=== PATIENT | female | born 1935 | race Caucasian/White ===

== ENCOUNTER 2017-11-23 19:41 | Observation (INO) ==
--- NOTE | 2017-11-23 19:54 | Emergency Department Note ---
Disposition Clinical Impression: Confusion, TIA (transient ischemic attack) Altered mental status Qualifiers: Altered mental status type: unspecified Qualified Code(s): R41.82 - Altered mental status, unspecified Disposition: Admitted As Inpatient Condition: Good Referrals: NONE,PCP [Primary Care Provider] - Forms: ED Satisfaction Letter Time of Disposition: 23:16 General Adult HPI - General Chief complaint: ED Altered Mental Status Stated complaint: confussion Time Seen by Provider: 11/23/17 19:54 Source: patient Mode of arrival: wheelchair Limitations: no limitations Nursing Notes Reviewed: Yes Vital Signs Reviewed: Yes - History of Present Illness HPI Narrative: Patient is an 82-year-old female with past medical history of hypertension. She presents today due to new onset confusion. Family is present states that the patient was at home today approximately 3 hours ago. Family was at her house exchanging out a stove. They do state that there is a gas leak for small amount of time. No one else in the house is confused at this time. They state that she went to the bathroom, came out and was confused, was unsure if she was in her own home. They state that she is usually fully alert, oriented 3, performs activities of daily living by herself. They did not note any focal weakness, slurred speech, facial drooping. The patient herself is pleasantly confused, denies any chest pain, shortness of breath, nausea, vomiting, fevers, diarrhea, abdominal pain, dysuria, hematuria, falls. Granddaughter is present and states that she was home the entire time during this event and she did not hear or witness any falls, any other concerning of the events around this time of sudden onset confusion. Granddaughter does state that she took the patient's blood pressure during this event and it was elevated, diastolic was 118. The patient took her blood pressure medication and the recheck showed a diastolic in the 90s. They deny any other known history of CVA, previous cardiac disease or heart attack. - Related Data Allergies Allergy/AdvReac Type Severity Reaction Status Date / Time citalopram Allergy Itching Verified 11/23/17 21:16 isosorbide [From Imdur] AdvReac Numbness Verified 11/23/17 21:16 All systems ED: reviewed and negative except as stated. Constitutional: Denies: fever Cardiovascular: Denies: chest pain Respiratory: Denies: cough, dyspnea Gastrointestinal: Denies: abdominal pain, nausea, vomiting, diarrhea, constipation Genitourinary: Denies: urgency, dysuria, frequency, hematuria, discharge Neurological: Reports: confusion. Denies: headache, weakness, numbness, paresthesias, abnormal gait, vertigo Past Medical History - Past Medical History Attestation: Yes The following information was validated with the patient. Source: patient Medical history: Reports: no medical history Physical Exam - General Limitations: no limitations, altered mental status (Pleasantly confused) General appearance: alert - Head Head exam: atraumatic, normocephalic, normal inspection - Eye Eye exam: Present: normal appearance, PERRL, EOMI - ENT ENT exam: normal exam, normal oropharynx, mucous membranes moist - Neck Neck exam: Present: normal inspection, full ROM, trachea midline - Chest Chest inspection: Present: normal inspection, symmetric chest wall rise - Respiratory Respiratory exam: Present: normal lung sounds bilaterally - Cardiovascular Cardiovascular exam: Present: regular rate, normal rhythm, normal heart sounds - Abdominal Exam Abdominal exam: Present: soft, Non-Tender. Absent: tenderness, distention, guarding, rebound, rigidity - Extremities Exam Extremities exam: Present: normal inspection, full ROM. Absent: tenderness, pedal edema - Neurological Exam Neurological exam: Present: alert, CN II-XII intact, other (oriented x 2). Absent: motor sensory deficit - Expanded Neurological Exam Patient oriented to: Present: person, place. Absent: time Speech: Present: fluid speech Cranial nerves: EOM function (II, III, IV, ): Normal, facial sensation (V): Normal, facial palsy (VII): Normal, spinal accessory function (XI): Normal, tongue deviation (XII): Normal Cerebellar function: finger to nose: Normal Motor strength - LUE: 5/5 Motor strength - RUE: 5/5 Motor strength - LLE: 5/5 Motor strength - RLE: 5/5 Sensory exam upper extremity: light touch: Normal Sensory exam lower extremity: light touch: Normal Coma Scale Eye Opening: Spontaneous Coma Scale Motor Response: Obeys Commands Coma Scale Verbal Response: Confused Coma Scale Total: 14 - Psychiatric Psychiatric exam: Present: normal affect, normal mood - Skin Skin exam: Present: warm, dry, intact, normal color Course Course Narrative: NIH of 1 due to confusion, oriented x 2. This is changed from reported baseline. Otherwise, no other focal neuro deficit noted. Patient is outside the window of TPA. Proceed with head scan, basic blood work, chest x-ray, EKG, troponin, urinalysis to assess for any other etiology of confusion. This could be CVA in nature, patient will need to be admitted regardless for further CVA- type workup if everything is negative due to sudden onset nature of confusion. The confusion may also be related to elevated blood pressure prior to event. 23:13 chest x-ray negative for any acute cardio pulmonary process. Head CT was negative. Basic blood work shows no major abnormality. CO level mildly elevated at 7, she has smokers in house which could explain mild elevation. Urinalysis negative. This could have been related to elevated blood pressure, although there is no other secondary signs of end organ damage on other labs. Main concern is for possible TIA. Patient was reassessed after imaging and lab work, she is able to tell me person place and time much more quickly, is now oriented 3. Continues to have no focal neurologic deficits. Discussed admission for TIA workup. Patient family agreeable with this plan. Patient has been accepted by hospitalist at this time. Chest X-Ray 11/23/17 20:02 IMPRESSION: No acute cardiopulmonary disease. There is a small band of left retrocardiac atelectasis. D/ / Tomi Eller MD / Tomi Eller MD Interpreting Provider: Tomi Eller MD Head CT 11/23/17 20:03 IMPRESSION: No acute intracranial abnormality. Chronic white matter microangiopathic ischemic changes and age-related cerebral atrophy. Right subcortical white matter lacune or infarcts, chronic. D/ / Hao Funes MD / Hao Funes MD Interpreting Provider: Hao Funes MD Vital Signs Pulse Rate 78 11/23/17 20:17 Respiratory Rate 16 11/23/17 20:17 Blood Pressure 177/94 11/23/17 20:17 O2 Sat by Pulse Oximetry 99 11/23/17 20:17 Temperature 98.8 F 11/23/17 21:21 Pulse Rate 78 11/23/17 21:21 Respiratory Rate 16 11/23/17 21:21 Blood Pressure 177/94 11/23/17 21:21 O2 Sat by Pulse Oximetry 99 11/23/17 21:21 Oxygen Delivery Oxygen Delivery Room Air Medical Decision Making - MDM Narrative Medical decision making narrative: NIH of 1 due to confusion, oriented x 2. This is changed from reported baseline. Otherwise, no other focal neuro deficit noted. Patient is outside the window of TPA. Proceed with head scan, basic blood work, chest x-ray, EKG, troponin, urinalysis to assess for any other etiology of confusion. This could be CVA in nature, patient will need to be admitted regardless for further CVA- type workup if everything is negative due to sudden onset nature of confusion. The confusion may also be related to elevated blood pressure prior to event. 23:13 chest x-ray negative for any acute cardio pulmonary process. Head CT was negative. Basic blood work shows no major abnormality. CO level mildly elevated at 7, she has smokers in house which could explain mild elevation. Urinalysis negative. This could have been related to elevated blood pressure, although there is no other secondary signs of end organ damage on other labs. Main concern is for possible TIA. Patient was reassessed after imaging and lab work, she is able to tell me person place and time much more quickly, is now oriented 3. Continues to have no focal neurologic deficits. Discussed admission for TIA workup. Patient family agreeable with this plan. Patient has been accepted by hospitalist at this time. - Medical Records Medical records reviewed: Yes I reviewed the patient's medical records. - Lab Data Lab results reviewed: Yes I reviewed the patient's lab results. Result diagrams: 11/23/17 20:21 11/23/17 20:21 Lab Results 11/23/17 11/23/17 11/23/17 Range/Units 20:21 20:21 20:21 WBC 7.0 (4.3-11.1) K/mcL RBC 4.42 (3.82-4.97) M/mcL Hgb 13.8 (11.5-15.4) g/dL Hct 41.2 (35.3-44.9) % MCV 93.2 (83.0-100.0) fL MCH 31.2 (28.0-33.3) pg MCHC 33.5 (31.6-35.5) g/dL RDW 13.2 (11.5-14.5) % Plt Count 200 (140-400) K/mcL MPV 9.7 (9.4-12.4) fL Immature Gran % 0.3 (0-4) % Seg Neutrophils % 80.2 % Lymphocytes % 13.4 % Monocytes % 4.1 % Eosinophils % 1.0 % Basophils % 1.0 % Neutrophils # 5.6 (1.6-8.9) K/mcL Lymphocytes # 0.9 (0.6-4.6) K/mcL Monocytes # 0.3 (0.0-1.3) K/mcL Eosinophils # 0.1 (0.0-0.6) K/mcL Basophils # 0.1 (0.0-0.2) K/mcL PT 11.0 (9.4-12.1) Seconds INR 1.0 APTT 29.9 (26.0-36.0) Seconds Carboxyhemoglobin (0-5) % Sodium 139 (136-145) mEq/L Potassium 3.9 (3.5-5.1) mEq/L Chloride 104 (98-107) mEq/L Carbon Dioxide 27 (23-29) mEq/L BUN 17 (8-23) mg/dL Creatinine 0.81 (0.60-1.20) mg/dL Est GFR ( Amer) > 60 (> 60) Est GFR (Non-Af Amer) > 60 (> 60) BUN/Creatinine Ratio 21 (6-26) Glucose 87 (70-105) mg/dL Calculated Osmolality 289 (280-300) Calcium 9.2 (8.6-10.3) mg/dL Total Bilirubin 0.9 (0.3-1.0) mg/dL Direct Bilirubin 0.2 (0.0-0.2) mg/dL Indirect Bilirubin 0.7 (0.0-1.2) mg/dL AST 26 (13-39) Units/L ALT 21 (7-52) Units/L Alkaline Phosphatase 41 (34-104) Units/L Troponin I < 0.03 (< 0.04) ng/mL Serum Total Protein 6.7 (6.4-8.9) g/dL Albumin 4.4 (3.5-5.7) g/dL Globulin 2.3 L (2.4-3.5) g/dL Albumin/Globulin Ratio 1.9 (1.1-2.2) TSH (0.340-5.600) mcIU/mL Urine Color (Yellow) Urine Clarity (Clear) Urine pH (5.0-8.0) pH Units Ur Specific [place] (1.010-1.025) Urine Protein (Neg-Trace) mg/dL Urine Glucose (UA) (Normal) mg/dL Urine Ketones (Negative) mg/dL Urine Blood (Negative) Urine Nitrite (Negative) Urine Bilirubin (Negative) Urine Urobilinogen (Normal) mg/dL Ur Leukocyte Esterase (Negative) Urine Microscopic RBC (0-3) per hpf Urine Microscopic WBC (0-3) per hpf Ur Squamous Epith Cells (None-Few) per lpf Urine Bacteria (None-Few) per hpf Hyaline Casts (None-Few) per lpf Ur Culture Indicated? (NO) 11/23/17 11/23/17 11/23/17 Range/Units 20:21 20:21 20:32 WBC (4.3-11.1) K/mcL RBC (3.82-4.97) M/mcL Hgb (11.5-15.4) g/dL Hct (35.3-44.9) % MCV (83.0-100.0) fL MCH (28.0-33.3) pg MCHC (31.6-35.5) g/dL RDW (11.5-14.5) % Plt Count (140-400) K/mcL MPV (9.4-12.4) fL Immature Gran % (0-4) % Seg Neutrophils % % Lymphocytes % % Monocytes % % Eosinophils % % Basophils % % Neutrophils # (1.6-8.9) K/mcL Lymphocytes # (0.6-4.6) K/mcL Monocytes # (0.0-1.3) K/mcL Eosinophils # (0.0-0.6) K/mcL Basophils # (0.0-0.2) K/mcL PT (9.4-12.1) Seconds INR APTT (26.0-36.0) Seconds Carboxyhemoglobin 7.3 H (0-5) % Sodium (136-145) mEq/L Potassium (3.5-5.1) mEq/L Chloride (98-107) mEq/L Carbon Dioxide (23-29) mEq/L BUN (8-23) mg/dL Creatinine (0.60-1.20) mg/dL Est GFR ( Amer) (> 60) Est GFR (Non-Af Amer) (> 60) BUN/Creatinine Ratio (6-26) Glucose (70-105) mg/dL Calculated Osmolality (280-300) Calcium (8.6-10.3) mg/dL Total Bilirubin (0.3-1.0) mg/dL Direct Bilirubin (0.0-0.2) mg/dL Indirect Bilirubin (0.0-1.2) mg/dL AST (13-39) Units/L ALT (7-52) Units/L Alkaline Phosphatase (34-104) Units/L Troponin I (< 0.04) ng/mL Serum Total Protein (6.4-8.9) g/dL Albumin (3.5-5.7) g/dL Globulin (2.4-3.5) g/dL Albumin/Globulin Ratio (1.1-2.2) TSH 3.651 (0.340-5.600) mcIU/mL Urine Color Yellow (Yellow) Urine Clarity Clear (Clear) Urine pH 7.5 (5.0-8.0) pH Units Ur Specific [place] 1.021 (1.010-1.025) Urine Protein Negative (Neg-Trace) mg/dL Urine Glucose (UA) Normal (Normal) mg/dL Urine Ketones Negative (Negative) mg/dL Urine Blood Negative (Negative) Urine Nitrite Negative (Negative) Urine Bilirubin Negative (Negative) Urine Urobilinogen Normal (Normal) mg/dL Ur Leukocyte Esterase Trace H (Negative) Urine Microscopic RBC 0-3 (0-3) per hpf Urine Microscopic WBC 0-3 (0-3) per hpf Ur Squamous Epith Cells Moderate H (None-Few) per lpf Urine Bacteria None Seen (None-Few) per hpf Hyaline Casts None Seen (None-Few) per lpf Ur Culture Indicated? YES A (NO) - Radiology Data Radiology results reviewed: Yes I reviewed the patient's radiology results. Chest X-Ray 11/23/17 20:02 IMPRESSION: No acute cardiopulmonary disease. There is a small band of left retrocardiac atelectasis. D/ / Tomi Eller MD / Tomi Eller MD Interpreting Provider: Tomi Eller MD Head CT 11/23/17 20:03 IMPRESSION: No acute intracranial abnormality. Chronic white matter microangiopathic ischemic changes and age-related cerebral atrophy. Right subcortical white matter lacune or infarcts, chronic. D/ / Hao Funes MD / Hao Funes MD Interpreting Provider: Hao Funes MD - EKG Data EKG #1 EKG attestation: Yes I reviewed and interpreted this EKG. EKG results narrative: 11/23/2017 at 21:07. Normal sinus rhythm. Rate 75. NV 196. QRS 89. QTc 490. Left axis deviation. No acute ST elevation or depression. S.B.A.R. - S.B.A.R. Situation: Demographics, MOA Background: Presenting Complaint, Relevant PMH, Meds, & Allergies Assessment: Vital Signs, Course and respsone to treatment, Exam Concerns, Patient/Family Expectation, Pertinant Lab Results Recommendation: Barrier(s) to disposition, Recommendation based on pending studies, treatments, or consults S.B.A.R. Report Given to: Dr. Tinajero NIH Stroke Scale - Level of Consciousness LOC: Alert - LOC Questions LOC Questions: Answers one correctly - LOC Commands LOC Commands: Performs both correctly - Best Gaze Best Gaze: Normal - Visual Visual: No visual loss - Facial Palsy Facial Palsy: Normal - Motor Arms Motor Arm-Left: No drift for 10 seconds Motor Arm-Right: No drift for 10 seconds - Motor Legs Motor Leg-Left: No drift for 5 seconds Motor Leg-Right: No drift for 5 seconds - Limb Ataxia Limb Ataxia: Absent of affected limb too weak to perform exam - Sensory Sensory: Normal - Best Language Best Language: No aphasia - Dysarthria Dysarthria: Normal - Extinction and Inattention Extinction and Inattention: Normal - NIHSS Total Score NIHSS Total Score: 1
--- NOTE | 2017-11-23 20:10 | Emergency Department Note ---
Disposition Clinical Impression: Confusion, TIA (transient ischemic attack) Altered mental status Qualifiers: Altered mental status type: unspecified Qualified Code(s): R41.82 - Altered mental status, unspecified Disposition: Admitted As Inpatient Condition: Good General Adult HPI - General Chief complaint: ED Altered Mental Status Stated complaint: confussion Time Seen by Provider: 11/23/17 19:54 Source: patient Mode of arrival: wheelchair Limitations: no limitations - Related Data Home Medications Medication Instructions Recorded Confirmed Atorvastatin Calcium [Lipitor] 40 mg PO HS 11/24/17 11/24/17 Carvedilol 50 mg PO BID 11/24/17 11/24/17 HydrOXYzine 10 mg PO TID PRN 11/24/17 11/24/17 RX: Alendronate Sodium [Fosamax] 70 mg PO Q1W 11/24/17 11/24/17 RX: Aspirin [Adult Aspirin Regimen] 81 mg PO DAILY 11/24/17 11/24/17 RX: Diclofenac Sodium [Voltaren] 50 mg PO BID 11/24/17 11/24/17 RX: Docusate Sodium [Dulcolax 100 mg PO DAILY 11/24/17 11/24/17 Stool Softener] RX: Lisinopril [Zestril] 20 mg PO DAILY 11/24/17 11/24/17 RX: Omeprazole [PriLOSEC] 20 mg PO DAILY 11/24/17 11/24/17 Triamcinolone Acetonide 0.1 % .ROUTE BID 11/24/17 11/24/17 Allergies Allergy/AdvReac Type Severity Reaction Status Date / Time citalopram Allergy Itching Verified 11/23/17 21:16 isosorbide [From Imdur] AdvReac Numbness Verified 11/23/17 21:16 Physical Exam - General Limitations: no limitations Course Vital Signs Pulse Rate 78 11/23/17 20:17 Respiratory Rate 16 11/23/17 20:17 Blood Pressure 177/94 11/23/17 20:17 O2 Sat by Pulse Oximetry 99 11/23/17 20:17 Temperature 98.0 F 11/24/17 01:30 Pulse Rate 58 11/24/17 01:30 Respiratory Rate 16 11/24/17 01:30 Blood Pressure 196/73 11/24/17 01:30 O2 Sat by Pulse Oximetry 96 11/24/17 01:30 Oxygen Delivery Oxygen Delivery Room Air Medical Decision Making - Lab Data Result diagrams: 11/23/17 20:21 11/23/17 20:21 Lab Results 11/23/17 11/23/17 11/23/17 Range/Units 20:21 20:21 20:21 WBC 7.0 (4.3-11.1) K/mcL RBC 4.42 (3.82-4.97) M/mcL Hgb 13.8 (11.5-15.4) g/dL Hct 41.2 (35.3-44.9) % MCV 93.2 (83.0-100.0) fL MCH 31.2 (28.0-33.3) pg MCHC 33.5 (31.6-35.5) g/dL RDW 13.2 (11.5-14.5) % Plt Count 200 (140-400) K/mcL MPV 9.7 (9.4-12.4) fL Immature Gran % 0.3 (0-4) % Seg Neutrophils % 80.2 % Lymphocytes % 13.4 % Monocytes % 4.1 % Eosinophils % 1.0 % Basophils % 1.0 % Neutrophils # 5.6 (1.6-8.9) K/mcL Lymphocytes # 0.9 (0.6-4.6) K/mcL Monocytes # 0.3 (0.0-1.3) K/mcL Eosinophils # 0.1 (0.0-0.6) K/mcL Basophils # 0.1 (0.0-0.2) K/mcL PT 11.0 (9.4-12.1) Seconds INR 1.0 APTT 29.9 (26.0-36.0) Seconds Carboxyhemoglobin (0-5) % Sodium 139 (136-145) mEq/L Potassium 3.9 (3.5-5.1) mEq/L Chloride 104 (98-107) mEq/L Carbon Dioxide 27 (23-29) mEq/L BUN 17 (8-23) mg/dL Creatinine 0.81 (0.60-1.20) mg/dL Est GFR ( Amer) > 60 (> 60) Est GFR (Non-Af Amer) > 60 (> 60) BUN/Creatinine Ratio 21 (6-26) Glucose 87 (70-105) mg/dL Calculated Osmolality 289 (280-300) Calcium 9.2 (8.6-10.3) mg/dL Total Bilirubin 0.9 (0.3-1.0) mg/dL Direct Bilirubin 0.2 (0.0-0.2) mg/dL Indirect Bilirubin 0.7 (0.0-1.2) mg/dL AST 26 (13-39) Units/L ALT 21 (7-52) Units/L Alkaline Phosphatase 41 (34-104) Units/L Troponin I < 0.03 (< 0.04) ng/mL Serum Total Protein 6.7 (6.4-8.9) g/dL Albumin 4.4 (3.5-5.7) g/dL Globulin 2.3 L (2.4-3.5) g/dL Albumin/Globulin Ratio 1.9 (1.1-2.2) TSH (0.340-5.600) mcIU/mL Urine Color (Yellow) Urine Clarity (Clear) Urine pH (5.0-8.0) pH Units Ur Specific [place] (1.010-1.025) Urine Protein (Neg-Trace) mg/dL Urine Glucose (UA) (Normal) mg/dL Urine Ketones (Negative) mg/dL Urine Blood (Negative) Urine Nitrite (Negative) Urine Bilirubin (Negative) Urine Urobilinogen (Normal) mg/dL Ur Leukocyte Esterase (Negative) Urine Microscopic RBC (0-3) per hpf Urine Microscopic WBC (0-3) per hpf Ur Squamous Epith Cells (None-Few) per lpf Urine Bacteria (None-Few) per hpf Hyaline Casts (None-Few) per lpf Ur Culture Indicated? (NO) 11/23/17 11/23/17 11/23/17 Range/Units 20:21 20:21 20:32 WBC (4.3-11.1) K/mcL RBC (3.82-4.97) M/mcL Hgb (11.5-15.4) g/dL Hct (35.3-44.9) % MCV (83.0-100.0) fL MCH (28.0-33.3) pg MCHC (31.6-35.5) g/dL RDW (11.5-14.5) % Plt Count (140-400) K/mcL MPV (9.4-12.4) fL Immature Gran % (0-4) % Seg Neutrophils % % Lymphocytes % % Monocytes % % Eosinophils % % Basophils % % Neutrophils # (1.6-8.9) K/mcL Lymphocytes # (0.6-4.6) K/mcL Monocytes # (0.0-1.3) K/mcL Eosinophils # (0.0-0.6) K/mcL Basophils # (0.0-0.2) K/mcL PT (9.4-12.1) Seconds INR APTT (26.0-36.0) Seconds Carboxyhemoglobin 7.3 H (0-5) % Sodium (136-145) mEq/L Potassium (3.5-5.1) mEq/L Chloride (98-107) mEq/L Carbon Dioxide (23-29) mEq/L BUN (8-23) mg/dL Creatinine (0.60-1.20) mg/dL Est GFR ( Amer) (> 60) Est GFR (Non-Af Amer) (> 60) BUN/Creatinine Ratio (6-26) Glucose (70-105) mg/dL Calculated Osmolality (280-300) Calcium (8.6-10.3) mg/dL Total Bilirubin (0.3-1.0) mg/dL Direct Bilirubin (0.0-0.2) mg/dL Indirect Bilirubin (0.0-1.2) mg/dL AST (13-39) Units/L ALT (7-52) Units/L Alkaline Phosphatase (34-104) Units/L Troponin I (< 0.04) ng/mL Serum Total Protein (6.4-8.9) g/dL Albumin (3.5-5.7) g/dL Globulin (2.4-3.5) g/dL Albumin/Globulin Ratio (1.1-2.2) TSH 3.651 (0.340-5.600) mcIU/mL Urine Color Yellow (Yellow) Urine Clarity Clear (Clear) Urine pH 7.5 (5.0-8.0) pH Units Ur Specific [place] 1.021 (1.010-1.025) Urine Protein Negative (Neg-Trace) mg/dL Urine Glucose (UA) Normal (Normal) mg/dL Urine Ketones Negative (Negative) mg/dL Urine Blood Negative (Negative) Urine Nitrite Negative (Negative) Urine Bilirubin Negative (Negative) Urine Urobilinogen Normal (Normal) mg/dL Ur Leukocyte Esterase Trace H (Negative) Urine Microscopic RBC 0-3 (0-3) per hpf Urine Microscopic WBC 0-3 (0-3) per hpf Ur Squamous Epith Cells Moderate H (None-Few) per lpf Urine Bacteria None Seen (None-Few) per hpf Hyaline Casts None Seen (None-Few) per lpf Ur Culture Indicated? YES A (NO) Attestation Statement - Attestation Attestation: Resident Attestation: I examined this patient and my medical decision making was reviewed with the Resident Physician. I agree with the documented findings, disposition and treatment plan as described except to the extent set forth below. We independently had [id number] contact with the patient Resident Dr. Johnson Patient with past medical history of hypertension, hyperlipidemia, previous stent placement on aspirin but no other anticoagulation presents for evaluation of confusion. Patient has been doing a lot of housework recently they have been transitioning from electric to gas though. Patient walked into the kitchen and forgot where she was. She did not realize that it was her kitchen or what they were doing. The patient did have weakness at this time to that someone had to help her get back to the living space. The patient's weakness was not focal but described as generalized. She has no cranial nerve, strength or sensation deficits throughout. Patient knows her name she knows where she is at she knows the year but thought it was October. She is able to state her name as well as the names of the 3 individuals within the room. She does live with 2 of them. They state that this is unlike her. The patient does not have a history of de mentia. Please see resident note for further details and disposition.
[2017-11-23 20:37] LABS: Basophils # 0.1 K/mcL (0.0-0.2); Eosinophils # 0.1 K/mcL (0.0-0.6); Hematocrit 41.2 % (35.3-44.9); Hemoglobin 13.8 g/dL (11.5-15.4); Immature Granulocytes % 0.3 % (0-4); Lymphocytes # 0.9 K/mcL (0.6-4.6); Lymphocytes % 13.4 %; Mean Corpuscular HGB Conc 33.5 g/dL (31.6-35.5); Mean Corpuscular Hemoglobin 31.2 pg (28.0-33.3); Mean Corpuscular Volume 93.2 fL (83.0-100.0); Mean Platelet Volume 9.7 fL (9.4-12.4); Monocytes # 0.3 K/mcL (0.0-1.3); Monocytes % 4.1 %; Neutrophils # 5.6 K/mcL (1.6-8.9); Platelet Count 200 K/mcL (140-400); Red Blood Count 4.42 M/mcL (3.82-4.97); Red Cell Distribution Width 13.2 % (11.5-14.5); Segmented Neutrophils % 80.2 %
[2017-11-23 20:50] LABS: Activated Partial Thrombo Time 29.9 Seconds (26.0-36.0)
[2017-11-23 21:01] LABS: Alanine Aminotransferase 21 Units/L (7-52); Albumin 4.4 g/dL (3.5-5.7); Albumin/Globulin Ratio 1.9 (1.1-2.2); Alkaline Phosphatase 41 Units/L (34-104); Aspartate Amino Transferase 26 Units/L (13-39); BUN/Creatinine Ratio 21 (6-26); Bilirubin,Direct 0.2 mg/dL (0.0-0.2); Bilirubin,Indirect 0.7 mg/dL (0.0-1.2); Bilirubin,Total 0.9 mg/dL (0.3-1.0); Blood Urea Nitrogen 17 mg/dL (8-23); Calcium 9.2 mg/dL (8.6-10.3); Carbon Dioxide 27 mEq/L (23-29); Chloride 104 mEq/L (98-107); Globulin 2.3 g/dL (2.4-3.5); Glucose 87 mg/dL (70-105); Osmolality,Calculated 289 (280-300); Potassium 3.9 mEq/L (3.5-5.1); Sodium 139 mEq/L (136-145); Total Protein 6.7 g/dL (6.4-8.9); Troponin I < 0.03 ng/mL (< 0.04); eGFR For Non-African Americans > 60 (> 60)
[2017-11-23 21:07] LABS: Bilirubin,Urine Negative (Negative); Blood,Urine Negative (Negative); Clarity,Urine Clear (Clear); Color,Urine Yellow (Yellow); Glucose,Urine (UA) Normal (Normal); Ketones,Urine Negative (Negative); Leukocyte Esterase,Urine Trace (Negative); Nitrite,Urine Negative (Negative); PH,Urine 7.5 pH Units (5.0-8.0); Protein,Urine Negative (Neg-Trace); Specific Gravity,Urine 1.021 (1.010-1.025); Urobilinogen,Urine Normal (Normal)
[2017-11-23 21:08] LABS: Bacteria,Urine None Seen per hpf (None-Few); Hyaline Casts,Urine None Seen per lpf (None-Few); RBC,Urine 0-3 per hpf (0-3); Squamous Epithelial Cell,Urine Moderate per lpf (None-Few); WBC,Urine 0-3 per hpf (0-3)
[2017-11-24] MEDS ORDERED: Naloxone 0.4 MG/ML INJ IVP PRN (07:43)
[2017-11-24] MEDS ORDERED: Isovue-370 500 ML INFUS..BTL IV ONE (07:47)
[2017-11-24 08:34] LABS: Chol/HDL Ratio 3.4 (0-4.9)
[2017-11-24] MEDS: Aspirin Enteric Coated 81 MG Tablet PO SCH (10:43)
--- NOTE | 2017-11-24 13:32 | Internal Med History&Physical ---
Date of Encounter: 11/24/17 Time of Encounter: 13:26 Internal Medicine - H&P: HPI Chief complaint: AMS Admitted From: Home Plans for Post Hospital Care: Home History of present illness: Ms. Alford is a 82 year old female PMH of CAD s/p stent, and HTN. Patient was brought to the ED from home due to change in mental status, which was reported as the patient being confused. As per ED note patient's daughter reported that the patient was brought to the ED due to acute onset in her mental status, they reported they were exchanging an stove at the patient's home when they noticed an acute change in the patient's mental status. Patient does not remember why she was brought to the hospital but she denies slurred speech, focal weakness, headache, nausea or vomiting. Past Med Surg Social Fam HX - Past Medical History Medical history: no medical history Psychiatric history: depression - Past Surgical History Additional surgical history: oral cancer, cardiac stents - Social History Smoking Status: Never smoker Smokeless Tobacco Status: No Alcohol use: none Drug use: none - Family History Mother Living Status: Hx Family Cardiac Disorders: Yes Internal Medicine - H&P: Meds Alendronate Sodium [Fosamax] 70 mg PO Q1W 11/24/17 [History] Aspirin [Adult Aspirin Regimen] 81 mg PO DAILY 11/24/17 [History] Atorvastatin Calcium [Lipitor] 40 mg PO HS 11/24/17 [History] Carvedilol 50 mg PO BID 11/24/17 [History] Diclofenac Sodium [Voltaren] 50 mg PO BID 11/24/17 [History] Docusate Sodium [Dulcolax Stool Softener] 100 mg PO DAILY 11/24/17 [History] HydrOXYzine 10 mg PO TID PRN 11/24/17 [History] Lisinopril [Zestril] 20 mg PO DAILY 11/24/17 [History] Omeprazole [PriLOSEC] 20 mg PO DAILY 11/24/17 [History] Triamcinolone Acetonide 0.1 % .ROUTE BID 11/24/17 [History] Allergy/AdvReac Type Severity Reaction Status Date / Time citalopram Allergy Itching Verified 11/23/17 21:16 isosorbide [From Imdur] AdvReac Numbness Verified 11/23/17 21:16 All Systems PM: A 10-system review of systems was performed and is negative for pertinent findings except as documented above in the HPI. - Constitutional Constitutional: no chills, no fever(s), no lethargy, no weakness - EENT Eyes: no change in vision Nose, mouth and throat: no dry mouth - Cardiovascular Cardiovascular ROS IM: no chest pain, no diaphoresis, no dyspnea on exertion, no palpitations - Respiratory Respiratory: no cough, no dyspnea, no chest congestion, no excessive phlegm production - Gastrointestinal Gastrointestinal: no abdominal pain, no constipation, no diarrhea - Genitourinary Genitourinary: no dysuria, no nocturia, no urinary incontinence, no urinary urgency - Musculoskeletal Musculoskeletal ROS IM: no atrophy, no back pain - Integumentary Integumentary IM: no rash - Neurological Neurological ROS: no confusion, no dizziness, no focal weakness, no loss of vision, no tremor(s), no weakness - Psychiatric Psychiatric: no anxiety - Endocrine Endocrine IM: no fatigue - Allergic/Immunologic Additional comments: Rest of the review of system negative. - Constitutional Vitals: Temp Pulse Resp BP Pulse Ox 98.5 F 68 15 149/88 96 11/24/17 11:41 11/24/17 11:41 11/24/17 11:41 11/24/17 11:41 11/24/17 11:41 Exam: General: Patient is alert, oriented x4. no acute distress, speaks in full sentences Head: atraumatic, normocephalic, Eye: normal appearance, PERRL, no scleral icterus, no conjunctival injection ENT: mucous membranes moist, normal external ear exam Respiratory: Clear to auscultation bilaterally, no wheezing, rales or crackles. Cardiovascular: RRR, normal s1 and s2, No rubs, gallops, or murmors. Abdomen: Bowel sounds present normoactive x-4 quadrants. Abdomen is soft, nondistended. No guarding or rebound. No organomegaly noted. Musculoskeletal: Spontaneously moving all extremities. no edema, no calf tenderness. Strength is 5/5 in the upper and lower extr. Skin: warm, dry, intact. Neuro: Alert and oriented x4. Sensation light touch intact. Cranial nerves 2- 12 is intact. Not aphasic, gait is steady, rapid hand movements intact, [id number] intact, Psych: Patient's affect is normal Internal Med - H&P Results - Labs CBC & Chem 7: 11/23/17 20:21 11/23/17 20:21 Labs: Short CBC 11/23/17 Range/Units 20:21 WBC 7.0 (4.3-11.1) K/mcL Hgb 13.8 (11.5-15.4) g/dL Hct 41.2 (35.3-44.9) % Plt Count 200 (140-400) K/mcL Neutrophils # 5.6 (1.6-8.9) K/mcL BMP 11/23/17 20:21 Sodium 139 Potassium 3.9 Chloride 104 Carbon Dioxide 27 BUN 17 Creatinine 0.81 Glucose 87 Calcium 9.2 Cardiac Enzymes 11/23/17 Range/Units 20:21 Troponin I < 0.03 (< 0.04) ng/mL Liver Function 11/23/17 Range/Units 20:21 Total Bilirubin 0.9 (0.3-1.0) mg/dL Direct Bilirubin 0.2 (0.0-0.2) mg/dL AST 26 (13-39) Units/L ALT 21 (7-52) Units/L Alkaline Phosphatase 41 (34-104) Units/L Albumin 4.4 (3.5-5.7) g/dL Urine 11/23/17 Range/Units 20:32 Urine Color Yellow (Yellow) Urine Clarity Clear (Clear) Urine pH 7.5 (5.0-8.0) pH Units Ur Specific [place] 1.021 (1.010-1.025) Urine Protein Negative (Neg-Trace) mg/dL Urine Glucose (UA) Normal (Normal) mg/dL - Impressions ITS Impressions Chest X-Ray 11/23/17 20:02 IMPRESSION: No acute cardiopulmonary disease. There is a small band of left retrocardiac atelectasis. D/ / Tomi Eller MD / Tomi Eller MD Interpreting Provider: Tomi Eller MD Head CT 11/23/17 20:03 IMPRESSION: No acute intracranial abnormality. Chronic white matter microangiopathic ischemic changes and age-related cerebral atrophy. Right subcortical white matter lacune or infarcts, chronic. D/ / Hao Funes MD / Hao Funes MD Interpreting Provider: Hao Funes MD Brain MRI 11/24/17 07:46 IMPRESSION: 1. No evidence of acute intracranial ischemia, hemorrhage, or edema. 2. Minimal fluid signal seen associated with the mastoid air cells notable on the right. These findings could suggest mastoiditis with appropriate clinical history. D/ / Kip Rodriguez / Kip Rodriguez Interpreting Provider: Kip Rodriguez Angiography CT 11/24/17 07:47 IMPRESSION: 1. No evidence of arterial stenosis at levels [id number]. 2. No hemodynamically significant stenosis involving proximal or distal cervical internal carotid arteries or vertebral arteries. 3. Heterogeneous nodule associated with right lobe of thyroid gland. Ultrasound follow-up could be helpful for further evaluation. D/ / Kip Rodriguez / Kip Rodriguez Interpreting Provider: Kip Rodriguez Neck CTA 11/24/17 07:48 IMPRESSION: 1. No evidence of arterial stenosis at levels [id number]. 2. No hemodynamically significant stenosis involving proximal or distal cervical internal carotid arteries or vertebral arteries. 3. Heterogeneous nodule associated with right lobe of thyroid gland. Ultrasound follow-up could be helpful for further evaluation. D/ / Kip Rodriguez / Kip Rodriguez Interpreting Provider: Kip Rodriguez Echocardiogram 11/24/17 07:51 Impressions: LVEF 60%. Mild left ventricular diastolic dysfunction. Normal right ventricular structure and function. Mild mitral regurgitation. Mild tricuspid regurgitation. Mild pulmonic regurgitation. No pulmonary hypertension. - Assessment and plan (1) Altered mental status Current Visit: Yes Status: Acute Assessment and plan: Possible due to TIA r/o CVA vs elevated carboxyhemogloblobin Plan due to High ABCD score for TIA of 3, will r/o CVA MRI of the brain w/o contrast Neurology consult Head and neck CTA TTE Lipid panel A1c NPO Bedside swallow eval aspirin 81mg/PO daily PT/OT Heparin 5000 units BID for DVT prophylaxis. Qualifiers: Altered mental status type: transient alteration of awareness Qualified Code(s): R40.4 - Transient alteration of awareness (2) CAD (coronary artery disease) Current Visit: Yes Status: Chronic Assessment and plan: Patient on aspirin 81mg/PO daily. Qualifiers: Coronary Disease-Associated Artery/Lesion type: unspecified vessel or lesion type [place] vs. transplanted heart: unspecified whether [place] or transplanted heart Associated angina: angina presence unspecified Qualified Code(s): I25.10 - Atherosclerotic heart disease of [place] coronary artery without angina pectoris (3) Hypertension Current Visit: Yes Status: Chronic Assessment and plan: Hold home anti hypertensive medications and do permisive HTN until CVA work up resulted. Hydralazine 5mg/IV Q6HR PRN for SBP >220 or DBP >110 if CVA work up negative will resume home mediations. Qualifiers: Hypertension type: unspecified Qualified Code(s): I10 - Essential (primary) hypertension (4) DVT prophylaxis Current Visit: Yes Status: Acute Assessment and plan: On heparin 5000 units SubQ BID - Time Spent With Patient Total time spent is greater than 50% in coordination of care (as documented) at patient's floor/unit and/or counseling patient: 25 - 35 minutes
[2017-11-24] MEDS: *HR* Heparin 5,000 UNIT/ML VIAL SQ SCH (17:33)
--- NOTE | 2017-11-24 19:08 | Neurology - Consult Note ---
Date of Encounter: 11/24/17 Time of Encounter: 16:06 Assessment and Plan (1) Confusion Current Visit: Yes Status: Acute This patient was admitted earlier with some mental status changes without any focal findings on current neurological examination now she seemed to be back to her baseline. No evidence of any stroke or any other abnormality on an MRI of the brain. CT angiogram also negative for any critical stenosis an intra-or extracranial vasculature. Really doubt that these are seizures. Suggest check for underlying metabolic abnormalities perhaps it could be the main reason for her symptoms suggested check for vitamin B12 folate TSH as well as for any underlying infection in particularly UTI in the elderly. Make sure patient is hydrated patient remained stable okay to discharge from neurology standpoint discussed with the family in detail History of Present Illness HPI: Ms. Alford is a 82 year old female PMH of CAD s/p stent, and HTN. Patient was brought to the ED from home due to change in mental status, which was reported as the patient being confused. As per ED note patient's daughter reported that the patient was brought to the ED due to acute onset in her mental status, they reported they were exchanging an stove at the patient's home when they noticed an acute change in the patient's mental status. Patient does not remember why she was brought to the hospital but she denies slurred speech, focal weakness, headache, nausea or vomiting. Past Med Surg Social Fam HX - Past Medical History Medical history: no medical history Psychiatric history: depression - Past Surgical History Additional surgical history: oral cancer, cardiac stents - Social History Smoking Status: Never smoker Smokeless Tobacco Status: No Alcohol use: none Drug use: none - Family History Mother Living Status: Hx Family Cardiac Disorders: Yes Medications and Allergies Alendronate Sodium [Fosamax] 70 mg PO Q1W 11/24/17 [History] Aspirin [Adult Aspirin Regimen] 81 mg PO DAILY 11/24/17 [History] Atorvastatin Calcium [Lipitor] 40 mg PO HS 11/24/17 [History] Carvedilol 50 mg PO BID 11/24/17 [History] Diclofenac Sodium [Voltaren] 50 mg PO BID 11/24/17 [History] Docusate Sodium [Dulcolax Stool Softener] 100 mg PO DAILY 11/24/17 [History] HydrOXYzine 10 mg PO TID PRN 11/24/17 [History] Lisinopril [Zestril] 20 mg PO DAILY 11/24/17 [History] Omeprazole [PriLOSEC] 20 mg PO DAILY 11/24/17 [History] Triamcinolone Acetonide 0.1 % .ROUTE BID 11/24/17 [History] Allergy/AdvReac Type Severity Reaction Status Date / Time citalopram Allergy Itching Verified 11/23/17 21:16 isosorbide [From Imdur] AdvReac Numbness Verified 11/23/17 21:16 All Systems: The remainder of the systems were reviewed and are negative Physical Examination - Vital Signs Vital Signs: Initial Vital Signs Pulse Resp BP Pulse Ox 78 16 177/94 99 11/23/17 20:17 11/23/17 20:17 11/23/17 20:17 11/23/17 20:17 - Exam Exam: GENERAL: Comfortable in no acute distress HEENT: Normal LUNGS: CTA HEART: RRR, S1 S2 Audible, no murmur EXTREMITIES: No Pedal edema. DETAILED NEUROLOGICAL EXAMINATION: MENTAL STATUS: Oriented to person, place, date and situation. Memory: knows the President, Aware of recent events Recent Memory Intact Cranial Nerve Examination: CN - II: Visual Acuity, Field of Vision Normal, Fundus examination: No disk edema, Pupils- size shape reaction to light and accommodation: All normal. CN III, IV, : External ocular movements were intact, Pupils were reactive, Nodrooping of the eyelids CN V: Sensation over the face to light touch and pinprick all normal. Corneal reflexes not tested, jaw jerk normal. CN VII: No facial asymmetry, no flattening of nasolabial folds, no difficulty in closing the eyes, no loss of forehead wrinkles, no difficulty in eye-closure, frowning raising eyebrows. CNVIII: No significant hearing loss CN IX, X: Uvula centralized not deviated, Gag reflex: Not tested CN X1: Sternocleidomastoid, trapezius, normal or evidence of any weakness. CN X11: No Dysarthria, no wasting or fibrilation f tongue muscles, no deviation, tongue muscle strength normal. Motor examination: No hypertrophy, tone was normal, power grade 0-5 Upper limbs Proximal- No difficulty in lifting the arms above the head. Distal- No weakness in distal muscles On formal testing 5/5 all over Lower limbs On formal testing 5/5 all over Coordination: [id number] normal. Target pursuit normal finger tapping normal, Rapid alternating moment of wrist normal Sensory system: Superficial sensations- Touch normal. Pain- Pinprick, Temperature all normal, Deep sensation normal, Joint position sense normal. Cortical sensation, Tactile discrimination, localization and extinction all normal. Deep tendon reflexes. Symmetrical bilateral, No evidence of Babinski. No sign of meningeal irritation Gait Examination: Deferred Results - Laboratory Findings CBC and BMP: 11/23/17 20:21 11/23/17 20:21 Abnormal lab findings: Abnormal lab results Carboxyhemoglobin 7.3 % (0-5) H 11/23/17 20:21 Globulin 2.3 g/dL (2.4-3.5) L 11/23/17 20:21 HDL Cholesterol 37 mg/dL (40-59) L 11/24/17 08:03 Ur Leukocyte Esterase Trace (Negative) H 11/23/17 20:32 Ur Squamous Epith Cells Moderate per lpf (None-Few) H 11/23/17 20:32 Ur Culture Indicated? YES (NO) A 11/23/17 20:32 Consult Discharge Plan - Plan Referrals: NONE,PCP [Primary Care Provider] -
[2017-11-25 04:58] LABS: Hematocrit 38.3 % (35.3-44.9); Hemoglobin 12.9 g/dL (11.5-15.4); Mean Corpuscular HGB Conc 33.7 g/dL (31.6-35.5); Mean Corpuscular Hemoglobin 31.3 pg (28.0-33.3); Mean Platelet Volume 9.7 fL (9.4-12.4); Platelet Count 170 K/mcL (140-400); Red Blood Count 4.12 M/mcL (3.82-4.97); Red Cell Distribution Width 13.6 % (11.5-14.5)
[2017-11-25 05:16] LABS: BUN/Creatinine Ratio 14 (6-26); Blood Urea Nitrogen 13 mg/dL (8-23); Calcium 8.9 mg/dL (8.6-10.3); Carbon Dioxide 29 mEq/L (23-29); Chloride 106 mEq/L (98-107); Glucose 92 mg/dL (70-105); Magnesium 1.9 mg/dL (1.6-2.6); Osmolality,Calculated 292 (280-300); Phosphorous 3.5 mg/dL (2.7-4.5); Potassium 3.5 mEq/L (3.5-5.1); Sodium 141 mEq/L (136-145); eGFR For Non-African Americans 60 (> 60)
[2017-11-25] MEDS: *HR* Heparin 5,000 UNIT/ML VIAL SQ SCH ×2 (05:57→16:58)
[2017-11-25] MEDS ORDERED: Alendronate Sodium [Fosamax] 70 MG PO SCH (07:45)
[2017-11-25] MEDS: Aspirin Enteric Coated 81 MG Tablet PO SCH (08:21)
[2017-11-25] MEDS: Lisinopril 20 MG TABLET PO SCH (08:23)
--- NOTE | 2017-11-25 09:13 | Discharge Summary ---
- NOTES TO OUTPATIENT PROVIDER Notes to Outpatient Provider: Heterogenous nodule associated with right lobe of thyroid gland; please obtain ultrasound follow-up for further evaluation Orders not resulted at time of discharge: Pending orders 11/23/17 20:02 ECG 12 lead ECG [ECG] Stat Date of Encounter: 11/25/17 Time of Encounter: 09:06 - Discharge Diagnosis (1) Altered mental status Priority: Primary Status: Resolved Qualifiers: Altered mental status type: transient alteration of awareness Qualified Code(s): R40.4 - Transient alteration of awareness (2) CAD (coronary artery disease) Priority: Secondary Status: Chronic Qualifiers: Coronary Disease-Associated Artery/Lesion type: unspecified vessel or lesion type [place] vs. transplanted heart: unspecified whether [place] or transplanted heart Associated angina: angina presence unspecified Qualified Code(s): I25.10 - Atherosclerotic heart disease of [place] coronary artery without angina pectoris (3) Hypertension Priority: Secondary Status: Chronic Qualifiers: Hypertension type: unspecified Qualified Code(s): I10 - Essential (primary) hypertension (4) DVT prophylaxis Priority: Secondary Status: Acute Hospital course: Ms. Alford is a 82 year old female who presented for concerns of mental status change. The family is reporting the patient was confused and not acting herself. However the patient has no recollection of this. Family denied any slurred speech, facial droop, focal weakness. The patient denies any headache, vision changes, nausea, vomiting, chest pain, shortness of breath, urinary symptoms. Neurology seeing in consultation throughout stay. UA negative for UTI, CT angiogram negative for critical stenosis or intra- extracranial vasculature abnormalities. MRI negative for acute intracranial process. No evidence of stroke, highly unlikely seizure-like event. TSH normal. No metabolic derangements noted on chemistry. Event was self-limited and patient now back to baseline. No further interventions or workup recommended per neurology. Uneventful hospital course. Patient instructed to follow-up with PCP within 1 week of discharge. Discharge discussed with: patient, nurse - Time Spent with Patient Total time spent providing and/or coordinating discharge services: Less than 30 minutes - Discharge Medications Home Medications: Alendronate Sodium [Fosamax] 70 mg PO Q1W 11/24/17 [History] Aspirin [Adult Aspirin Regimen] 81 mg PO DAILY 11/24/17 [History] Atorvastatin Calcium [Lipitor] 40 mg PO HS 11/24/17 [History] Carvedilol 50 mg PO BID 11/24/17 [History] Diclofenac Sodium [Voltaren] 50 mg PO BID 11/24/17 [History] Docusate Sodium [Dulcolax Stool Softener] 100 mg PO DAILY 11/24/17 [History] HydrOXYzine 10 mg PO TID PRN 11/24/17 [History] Lisinopril [Zestril] 20 mg PO DAILY 11/24/17 [History] Omeprazole [PriLOSEC] 20 mg PO DAILY 11/24/17 [History] Triamcinolone Acetonide 0.1 % .ROUTE BID 11/24/17 [History] Allergies/Adverse Reactions: Allergy/AdvReac Type Severity Reaction Status Date / Time citalopram Allergy Itching Verified 11/23/17 21:16 isosorbide [From Imdur] AdvReac Numbness Verified 11/23/17 21:16 Date of admission: 11/23/17 23:42 Primary care physician: PCP NONE Consults: 11/24/17 07:44 Consult to Physical Therapy [CONS] Routine Comment: Evaluate, develop and implement POC Reason for Consult: CVA r/o Does patient have active BEDREST order?: No Is patient medically & hemodynamically stable?: Yes 11/24/17 07:50 Consult to Neurology [CONS] Routine Consulting Provider: Neurology [facility] Reason for Consult: r/o stroke Call Completed: No Discharging clinician: Ananda Schulte Anticipated date of discharge: 11/25/17 - Constitutional Vitals: Temp Pulse Resp BP Pulse Ox 97.7 F 55 16 169/93 95 11/25/17 03:46 11/25/17 06:42 11/25/17 06:42 11/25/17 06:42 11/25/17 06:42 General appearance: Present: A&O X 3 Exam: . - Head Head exam: Present: atraumatic, normocephalic - Eye Eye exam: Present: PERRL, conjuntiva pink, sclera anicteric Pupils: Present: PERRL - Neck Neck exam general surgery: Present: supple, trachea midline. Absent: lymphadenopathy - Respiratory Respiratory exam: Present: CTAB. Absent: accessory muscle use, rales, rhonchi, wheezes - Cardiovascular Cardiovascular exam: Present: RRR, +S1, +S2. Absent: diastolic murmur, gallop, rubs, systolic murmur - GI/Abdominal GI/Abdominal exam: Present: normal bowel sounds, soft, no peritoneal signs. Absent: distended, tenderness - Extremities Exam Extremities exam: Present: warm, radial pulses palpable and symmetrical. Absent: calf tenderness, cyanotic, pedal edema - Neurological Exam Neurological exam: Present: CN II-XII intact, oriented X3, no focal deficits. Absent: pronater drift, facial droop, speech deficit - Skin Skin exam: Present: dry, intact - Patient Status Disposition: Home, Self-Care Condition: Good Functional capacity at discharge: independent ambulation Overall status at discharge: patient is progressing back to baseline - Discharge Instructions Follow Up With: NONE,PCP [Primary Care Provider] - - Diet and Activity Activity: increase activity as tolerated, resume usual activities as tolerated Diet: low fat, low cholesterol, low salt diet
--- NOTE | 2017-11-25 16:36 | Internal Med Progress Note ---
Hospitalist Progress Note - Encounter Date of Encounter: 11/25/17 Time of Encounter: 16:34 - Subjective Interval History: No acute changes overnight - Exam Vitals: Temp Pulse Resp BP Pulse Ox 97.7 F 62 16 180/96 96 11/25/17 03:46 11/25/17 15:42 11/25/17 15:42 11/25/17 15:42 11/25/17 15:42 Exam: PHYSICAL EXAMINATION: GENERAL: The patient is a well-developed, well-nourished elderly female in no apparent distress. A and O 3 HEENT: Head is normocephalic and atraumatic. Extraocular muscles are intact. Pupils are equal, round, and reactive to light and accommodation. NECK: Supple. No carotid bruits. No lymphadenopathy or thyromegaly. LUNGS: Clear to auscultation B/L AP and L. HEART: Regular rate and rhythm, S1, S2 without murmur rubs or gallops. ABDOMEN: Soft, nontender, and nondistended. Positive bowel sounds. No hepatosplenomegaly was noted. EXTREMITIES: Without any cyanosis, clubbing, rash, lesions or edema. NEUROLOGIC: Cranial nerves II through XII are grossly intact. - Assessment and Plan (1) Altered mental status Current Visit: Yes Status: Resolved Assessment and Plan: Presented with change in mental status This has since resolved Neuro imaging is unremarkable including MRI without acute findings, CT angiogram head and neck without stenosis or intra-and extracranial vasculature abnormalities Neurology has seen in consultation, no further workup or interventions per neurology recommendations No focal neuro deficits noted No metabolic abnormalities TSH within normal limits TTE--LVEF 60%, mild LV SIXTO, normal RV, mild MR, mild TR, mild WV, no pulmonary HTN Continue aspirin 81 mg daily Continue PT/OT Continue to monitor overnight, the patient's condition remains stable discharge in the morning (2) CAD (coronary artery disease) Current Visit: Yes Status: Chronic Assessment and Plan: Continue ASA, Lipitor, Coreg and AKANKSHA Chest pain free Continuous tele (3) Hypertension Current Visit: Yes Status: Chronic Assessment and Plan: Resume anti-HTN meds monitor BP Continue PRN hydralazine (4) Orthostasis Current Visit: Yes Status: Acute Assessment and Plan: Patient staying overnight as she has positive orthostasis after receiving a dose of Coreg higher than her home dose She is without hypotension. Has intermittent episodes of asymptomatic bradycardia with rates dropping into the high 50s Otherwise patient has no focal deficits Continue to closely monitor Up with assist only Remain on telemetry d/c in the morning along with patient remains in dynamically stable Continue to hold Coreg tonight Resume at a dose of 12.5 mg in the morning (5) DVT prophylaxis Current Visit: Yes Status: Acute Assessment and Plan: Continue heparin SC BID - Time Spent with Patient Total time spent is greater than 50% in coordination of care (as documented) at patient's floor/unit and/or counseling patient: less than 15 minutes Plan of Care Discussed with: patient Internal Medicine: Result - Labs CBC & Chem 7: 11/25/17 04:05 11/25/17 04:05 Labs: Short CBC 11/25/17 Range/Units 04:05 WBC 5.6 (4.3-11.1) K/mcL Hgb 12.9 (11.5-15.4) g/dL Hct 38.3 (35.3-44.9) % Plt Count 170 (140-400) K/mcL BMP 11/25/17 04:05 Sodium 141 Potassium 3.5 Chloride 106 Carbon Dioxide 29 BUN 13 Creatinine 0.90 Glucose 92 Calcium 8.9 - ABG Interpretation ABG results: PT/INR, D-dimer PT 11.0 Seconds (9.4-12.1) 11/23/17 20:21 Consult Discharge Plan - Plan Referrals: NONE,PCP [Primary Care Provider] - (1) Altered mental status Qualifiers: Altered mental status type: transient alteration of awareness Qualified Code(s): R40.4 - Transient alteration of awareness (2) CAD (coronary artery disease) Qualifiers: Coronary Disease-Associated Artery/Lesion type: unspecified vessel or lesion type [place] vs. transplanted heart: unspecified whether [place] or transplanted heart Associated angina: angina presence unspecified Qualified Code(s): I25.10 - Atherosclerotic heart disease of [place] coronary artery without angina pectoris (3) Hypertension Qualifiers: Hypertension type: unspecified Qualified Code(s): I10 - Essential (primary) hypertension
[2017-11-26] MEDS: *HR* Heparin 5,000 UNIT/ML VIAL SQ SCH (06:08)
[2017-11-26] MEDS: Lisinopril 20 MG TABLET PO SCH (07:44)
[2017-11-26] MEDS: Aspirin Enteric Coated 81 MG Tablet PO SCH (07:44)
[2017-11-26 09:25] VITALS: BP 162/71
--- NOTE | 2017-11-26 09:55 | Discharge Summary ---
- NOTES TO OUTPATIENT PROVIDER Notes to Outpatient Provider: Basic discharge follow-up Orders not resulted at time of discharge: Pending orders 11/23/17 20:02 ECG 12 lead ECG [ECG] Stat Date of Encounter: 11/26/17 Time of Encounter: 09:51 - Discharge Diagnosis (1) Altered mental status Priority: Primary Status: Resolved Qualifiers: Altered mental status type: transient alteration of awareness Qualified Code(s): R40.4 - Transient alteration of awareness (2) CAD (coronary artery disease) Priority: Secondary Status: Chronic Qualifiers: Coronary Disease-Associated Artery/Lesion type: unspecified vessel or lesion type [place] vs. transplanted heart: unspecified whether [place] or transplanted heart Associated angina: angina presence unspecified Qualified Code(s): I25.10 - Atherosclerotic heart disease of [place] coronary artery without angina pectoris (3) Hypertension Priority: Secondary Status: Chronic Qualifiers: Hypertension type: unspecified Qualified Code(s): I10 - Essential (primary) hypertension (4) Orthostasis Priority: Secondary Status: Resolved (5) DVT prophylaxis Priority: Secondary Status: Acute Hospital course: Ms. Alford is a 82 year old female who was admitted with changes in mental status. Patient's family reporting that she was having confusion. Denied any slurred speech, focal weakness or facial drooping. Patient denies any headache, vision changes or unilateral numbness/tingling. Confusion was self-limited and patient is now back to baseline mental status. MRI of brain obtained without any evidence of acute CVA. CT angiogram head and neck negative for critical stenosis or intra--extracranial vasculature abnormalities. Neurology seeing in consultation, does not appear to be neurological cause, does not appear to be seizures. Consider being caused by dehydration and/or underlying metabolic abnormalities. Workup was negative for UTI as well. TSH found to be normal. She has had an uneventful hospital course and remains at baseline mental status. No additional neuro workup recommended. She is being discharged home with family. Discharge discussed with: patient, nurse, hadoop consultant - Time Spent with Patient Total time spent providing and/or coordinating discharge services: Less than 30 minutes - Discharge Medications Home Medications: Alendronate Sodium [Fosamax] 70 mg PO SA 11/24/17 [History] Aspirin [Adult Aspirin Regimen] 81 mg PO DAILY 11/24/17 [History] Atorvastatin Calcium [Lipitor] 40 mg PO HS 11/24/17 [History] Carvedilol 12.5 mg PO BID 11/24/17 [History] Diclofenac Sodium [Voltaren] 50 mg PO BID 11/24/17 [History] Docusate Sodium [Dulcolax Stool Softener] 100 mg PO DAILY 11/24/17 [History] HydrOXYzine 10 mg PO TID PRN 11/24/17 [History] Lisinopril [Zestril] 40 mg PO DAILY 11/24/17 [History] Omeprazole [PriLOSEC] 20 mg PO DAILY 11/24/17 [History] Triamcinolone Acet 0.1% CRM [Kenalog] 1 appl TP BID #0 11/24/17 [History] Allergies/Adverse Reactions: Allergy/AdvReac Type Severity Reaction Status Date / Time citalopram Allergy Itching Verified 11/23/17 21:16 isosorbide [From Imdur] AdvReac Numbness Verified 11/23/17 21:16 Date of admission: 11/23/17 23:42 Primary care physician: PCP NONE Consults: 11/24/17 07:44 Consult to Physical Therapy [CONS] Routine Comment: Evaluate, develop and implement POC Reason for Consult: CVA r/o Does patient have active BEDREST order?: No Is patient medically & hemodynamically stable?: Yes 11/24/17 07:50 Consult to Neurology [CONS] Routine Consulting Provider: [facility] Reason for Consult: r/o stroke Call Completed: No Discharging clinician: Ananda Schulte Anticipated date of discharge: 11/26/17 - Constitutional Vitals: Temp Pulse Resp BP Pulse Ox 97.9 F 64 16 162/71 95 11/26/17 07:00 11/26/17 09:24 11/26/17 07:00 11/26/17 09:24 11/26/17 07:00 General appearance: Present: A&O X 3 Exam: See exam - Head Head exam: Present: atraumatic, normocephalic - Eye Eye exam: Present: PERRL, conjuntiva pink, sclera anicteric Pupils: Present: PERRL - Neck Neck exam general surgery: Present: supple, trachea midline. Absent: lymphadenopathy - Respiratory Respiratory exam: Present: CTAB. Absent: accessory muscle use, rales, rhonchi, wheezes - Cardiovascular Cardiovascular exam: Present: RRR, +S1, +S2. Absent: diastolic murmur, gallop, rubs, systolic murmur - GI/Abdominal GI/Abdominal exam: Present: normal bowel sounds, soft, no peritoneal signs. Absent: distended, tenderness - Extremities Exam Extremities exam: Present: warm, radial pulses palpable and symmetrical. Absent: calf tenderness, cyanotic, pedal edema - Neurological Exam Neurological exam: Present: CN II-XII intact, oriented X3, no focal deficits. Absent: pronater drift, facial droop, speech deficit - Skin Skin exam: Present: dry, intact - Patient Status Disposition: Home, Self-Care Condition: Good Overall status at discharge: patient is back to baseline - Discharge Instructions Follow Up With: NONE,PCP [Primary Care Provider] - - Diet and Activity Activity: increase activity as tolerated, resume usual activities as tolerated Diet: advance to your usual diet
--- NOTE | 2017-11-26 13:25 | Electrocardiograph Report ---
[facility] Test Date: 2017-11-23 Pat Name: Idania Alford Department: EXAM22 Room: 3B21 Gender: F Hand Tier: : [id number] Requested By: Isma Johnson Order Number: [id number] Reading MD: Robby Queen Measurements Intervals Morgan Rate: 75 P: 64 RI: 196 QRS: -70 QRSD: 89 T: 67 QT: 438 QTc: 490 Interpretive Statements Sinus rhythm Left anterior fascicular block Low voltage, precordial leads Consider anterior infarct Electronically Signed On 11-26-2017 13:23:55 EDT by Robby Queen
== END 2017-11-26 11:37 | disposition home or self-care (01) ==
LOC: EMEROOARM 19:41 → 3BNU 19:41
PROVIDERS: ADMIT Family Medicine; ATTEND Family Medicine